=== PATIENT | male | born 1970 | race Caucasian/White ===

== ENCOUNTER 2020-09-02 11:23 | Emergency (ER) | payer BC ==
[2020-09-02 11:29] VITALS: RESP 20; TEMP 98.4
[2020-09-02] MEDS ORDERED: ORPHENADRINE 30 MG/ML 2 ML VIAL IM STA (11:57)
[2020-09-02] MEDS ORDERED: ACET/COD 300 MG/30 MG STARTER PACK 6 TAB BTL PO STA (11:57)
[2020-09-02] MEDS ORDERED: KETOROLAC 15 MG/ML 1 ML VIAL IM STA (11:57)
--- NOTE | 2020-09-02 12:29 | ED ---
General Adult HPI - General Chief complaint: Neck Pain/Injury Stated complaint: Shoulder Pain Source: patient Mode of arrival: ambulatory Limitations: no limitations - History of Present Illness Initial comments: 50-year-old male with a past medical history of hypertension, tonsillectomy presents to the emergency room for a chief complaint of left-sided neck pain. Patient states that he has had neck pain that radiates to his left shoulder since yesterday. 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 Throat the day this got worse. At night he states it spasmed up more. States it hurts to move to the right. States it hurts to lift his arms especially to put a shirt on. Patient did take Tylenol but it did not seem to help. He denies any weakness in the left arm. Denies any radiating pain or loss of sensation down the left arm. Patient has no other complaints at this time including shortness of breath, chest pain, abdominal pain, nausea or vomiting, headache, or visual changes. - Related Data Home Medications Medication Instructions Recorded Confirmed [id number] 4 tab PO ONCE PRN 09/02/20 09/02/20 [Excedrin] Losartan Potassium 100 mg PO DAILY 09/02/20 09/02/20 amLODIPine [Norvasc] 10 mg PO DAILY 09/02/20 09/02/20 Previous Rx's Medication Instructions Recorded Cyclobenzaprine [Flexeril] 5 mg PO TID #12 tablet 09/02/20 Allergies Allergy/AdvReac Type Severity Reaction Status Date / Time No Known Allergies Allergy Verified 09/02/20 12:09 Review of Systems ROS Statement: Those systems with pertinent positive or pertinent negative responses have been documented in the HPI. ROS Other: All systems not noted in ROS Statement are negative. Past Medical History Past Medical History: Hypertension History of Any Multi-Drug Resistant Organisms: None Reported Past Surgical History: Adenoidectomy, Tonsillectomy Past Psychological History: No Psychological Hx Reported Smoking Status: Never smoker Past Alcohol Use History: Occasional Past Drug Use History: None Reported General Exam Limitations: no limitations General appearance: alert Head exam: Present: atraumatic Eye exam: Present: normal appearance, PERRL, EOMI. Absent: scleral icterus, conjunctival injection ENT exam: Present: normal exam, mucous membranes moist Neck exam: Present: tenderness (Tenderness to the left paraspinal muscles into the upper trapezius of the left shoulder). Absent: meningismus, full ROM (Patient able to rotate neck about 45 to the right, full range motion of the left) Respiratory exam: Present: normal lung sounds bilaterally. Absent: respiratory distress, wheezes Cardiovascular Exam: Present: regular rate, normal rhythm, normal heart sounds GI/Abdominal exam: Present: soft, normal bowel sounds. Absent: distended, tenderness, guarding, rebound, rigid Extremities exam: Present: normal capillary refill (Capillary refill less than 2 seconds, radial pulse 2+), other (Sensation intact left upper extremity). Absent: full ROM (Patient able to flex arm to 90. Flexing past this point causes pain. No weakness.) Back exam: Absent: CVA tenderness (R), CVA tenderness (L) Neurological exam: Present: alert Course Vital Signs 09/02/20 11:26 Temperature 98.4 F Pulse Rate 73 Respiratory 20 Rate Blood Pressure 157/88 O2 Sat by Pulse 98 Oximetry Medical Decision Making - Medical Decision Making Vitals are stable. 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 Pain is mechanical in nature. Radial pulse 2+ in the left upper extremity. Sensation intact. Pains worsens with movement of the neck as well as flexion of the left shoulder. Patient was given Toradol and Norflex and did have significant improvement in symptoms. Patient likely has a torticollis or acute cervical strain. Recommend that he follow up with primary care and orthopedics as needed. He will return here to the emergency room for any worsening symptoms. We will start patient on conservative management. Disposition Clinical Impression: Strain of neck muscle, Acquired torticollis Disposition: HOME SELF-CARE Condition: Good Instructions (If sedation given, give patient instructions): Cervical Strain (ED) Additional Instructions: Please take Motrin and Tylenol for pain. You can alternate these as needed. Take Tylenol 3 at night if needed for severe pain. You may also try the muscle relaxer but do not take this while taking the Tylenol 3. Do not drive or operate machinery while taking muscle relaxer or the Tylenol 3. Return to the emergency room for any worsening symptoms. If symptoms are persistent follow-up with orthopedics or primary care. Prescriptions: Cyclobenzaprine [Flexeril] 5 mg PO TID #12 tablet Is patient prescribed a controlled substance at d/c from ED?: No Referrals: Nonstaff,Physician [Primary Care Provider] - 1-2 days Bandar Reeves DO [Doctor of Osteopathic Medicine] - 1-2 days Time of Disposition: 13:01
[2020-09-02 13:24] VITALS: BP 151/78; PULSE 70
== END 2020-09-02 13:24 | disposition home or self-care (01) ==
LOC: EC 11:23
DX: S16.1XXA Strain of muscle, fascia and tendon at neck level, initial encounter (principal); I10 Essential (primary) hypertension; Z79.899 Other long term (current) drug therapy; X58.XXXA Exposure to other specified factors, initial encounter
CPT/HCPCS: 99283; 96372; J2360; J1885

== ENCOUNTER 2020-09-03 10:50 | Emergency (ER) | payer BC ==
[2020-09-03 11:14] VITALS: RESP 18; TEMP 98.9
[2020-09-03] MEDS ORDERED: MORPHINE SULFATE 4 MG/ML SYRINGE IM STA (11:24)
--- NOTE | 2020-09-03 11:58 | XR ---
EXAMINATION TYPE: XR chest 2V DATE OF EXAM: 09/03/2020 COMPARISON: NONE HISTORY: Pain in shoulder and chest TECHNIQUE: Frontal and lateral views of the chest are obtained. FINDINGS: The lungs are clear of consolidative, interstitial or masslike opacity. There is no pleural effusion, pleural thickening or pneumothorax. The heart, pulmonary vasculature, mediastinum and hilum appear normal. The osseous structures are intact. IMPRESSION: No significant abnormality seen.
--- NOTE | 2020-09-03 12:00 | XR ---
Left shoulder. HISTORY: Pain. COMPARISON: None. TECHNIQUE: 3 views left shoulder were obtained. FINDINGS: There is no fracture, dislocation, intraosseous or intra-articular abnormality. There is no radiopaque foreign body or abnormal soft tissue calcification. IMPRESSION: No significant abnormality seen.
--- NOTE | 2020-09-03 12:01 | XR ---
Left clavicle. HISTORY: Pain following trauma. COMPARISON: None. TECHNIQUE: 2 views of the left clavicle were obtained. FINDINGS: There is no fracture, dislocation, intraosseous or intra-articular abnormality. The AC joint is stanislav l. IMPRESSION: No significant abnormality seen.
--- NOTE | 2020-09-03 13:04 | ED ---
General Adult HPI - General Chief complaint: Extremity Injury, Upper Stated complaint: Revisit - Shoulder Pain Source: patient Mode of arrival: ambulatory Limitations: no limitations - History of Present Illness Initial comments: 50-year-old male presents to the emergency room for a chief complaint of left clavicle pain and left posterior neck pain. Patient states 2 days ago he was working under a car. States he was trying to remove a radiator and was pulling on a lever. He could not get it to budge so pulled very hard and felt a pain and pop in his clavicle and pain in shoulder. Patient states this has persisted. Patient states it has actually worsened throughout the night. States it is very painful to put his shirt on because of the motions of his arm. Moving his neck exacerbates his pain as well. Pressing on the area on the clavicle makes the pain worse as well. Patient denies any pain rating on the arm. Denies any weakness in the left arm.Patient has no other complaints at this time including shortness of breath, chest pain, abdominal pain, nausea or vomiting, headache, or visual changes. - Related Data Home Medications Medication Instructions Recorded Confirmed [id number] 4 tab PO ONCE PRN 09/02/20 09/02/20 [Excedrin] Losartan Potassium 100 mg PO DAILY 09/02/20 09/02/20 amLODIPine [Norvasc] 10 mg PO DAILY 09/02/20 09/02/20 Previous Rx's Medication Instructions Recorded Cyclobenzaprine [Flexeril] 5 mg PO TID #12 tablet 09/02/20 HYDROcodone/APAP 5-325MG [[place] 1 tab PO Q6HR PRN #10 tab 09/03/20 5-325] Ibuprofen [Motrin] 600 mg PO Q8HR PRN #20 tab 09/03/20 diazePAM [Valium] 5 mg PO TID PRN 3 Days #9 tab 09/03/20 Allergies Allergy/AdvReac Type Severity Reaction Status Date / Time No Known Allergies Allergy Verified 09/03/20 11:14 Review of Systems ROS Statement: Those systems with pertinent positive or pertinent negative responses have been documented in the HPI. ROS Other: All systems not noted in ROS Statement are negative. Past Medical History Past Medical History: Hypertension History of Any Multi-Drug Resistant Organisms: None Reported Past Surgical History: Adenoidectomy, Tonsillectomy Past Psychological History: No Psychological Hx Reported Smoking Status: Never smoker Past Alcohol Use History: Occasional Past Drug Use History: None Reported General Exam - General Exam Comments Initial Comments: Left upper extremity: Strength 5 out of 5. Patient able to flex left arm to 90. Heart Nurse strength 5 out of 5. Sensation intact. Radial pulse 2+, capillary refill less than 2 seconds. Skin exam unremarkable. Patient also has mild edema noted to the medial aspect of the left clavicle around the sternoclavicular joint. Tenderness to the sternal clavicular joint. minimal ecchymosis to this area as well. No edema extending into the neck or chest Limitations: no limitations General appearance: alert, in no apparent distress Head exam: Present: atraumatic, normocephalic, normal inspection Eye exam: Present: normal appearance, PERRL, EOMI. Absent: scleral icterus, conjunctival injection, periorbital swelling ENT exam: Present: normal exam, mucous membranes moist Neck exam: Present: tenderness (Left lateral posterior neck tenderness). Absent: meningismus, full ROM (Patient has about 60 rotation bilaterally), lymphadenopathy Respiratory exam: Present: normal lung sounds bilaterally. Absent: respiratory distress, wheezes, rales, rhonchi, stridor Cardiovascular Exam: Present: regular rate, normal rhythm, normal heart sounds. Absent: systolic murmur, diastolic murmur, rubs, gallop, clicks GI/Abdominal exam: Present: soft, normal bowel sounds. Absent: distended, tenderness, guarding, rebound, rigid Course Vital Signs 09/03/20 09/03/20 11:11 13:11 Temperature 98.9 F 98.9 F Pulse Rate 74 86 Respiratory 18 18 Rate Blood Pressure 140/90 143/99 O2 Sat by Pulse 100 100 Oximetry Medical Decision Making - Medical Decision Making Patient presents with clavicular and neck pain after an injury 2 days ago. Pain is reproducible on exam to palpation and ROM. Patient has edema, ecchymosis and tenderness over the sternoclavicular joint. This does not extend into the neck or chest. He also has tenderness left posterior cervical muscles extending into the shoulder with pain with flexion of the left shoulder and rotation of the neck consistent with cervical muscle strain. Neurovascular status intact in the left upper extremity.Chest, shoulder, and clavicle x-ray all negative. Dr. Helmreich also evaluated patient. At this time symptoms are consistent with a subluxation or ligamentous strain of the clavicle at the sternoclavicular joint. At this time we will start patient on prescription strength Motrin for pain with [place] for breakthrough pain. We will also give Valium for spasm of the cervical muscles. Patientthese out. He will not take them together. He will not drive or operate machinery while taking Valium or [place]. He will follow-up with his doctor on Saturday. I did also give him orthopedic follow-up. He was given a sling for comfort but did discuss range of motion of the shoulder to prevent frozen shoulder. He will return for any worsening symptoms. Disposition Clinical Impression: Strain of neck muscle, Pain of left clavicle Disposition: HOME SELF-CARE Condition: Good Instructions (If sedation given, give patient instructions): Cervical Strain (ED) Additional Instructions: Please take Motrin for pain. Make sure to eat something while taking Motrin. Take a [place] if pain is severe. Take Valium for muscle spasm. Do not drive or operate machinery while taking Valium or [place]. Follow-up with your doctor in one to 2 days. Follow-up with orthopedics as well. If you have worsening symptoms return to the emergency room. Prescriptions: Ibuprofen [Motrin] 600 mg PO Q8HR PRN #20 tab PRN Reason: Pain HYDROcodone/APAP 5-325MG [[place] 5-325] 1 tab PO Q6HR PRN #10 tab PRN Reason: Pain diazePAM [Valium] 5 mg PO TID PRN 3 Days #9 tab PRN Reason: Muscle Spasm Is patient prescribed a controlled substance at d/c from ED?: No Referrals: Nonstaff,Physician [Primary Care Provider] - 1-2 days Bandar Reeves DO [Doctor of Osteopathic Medicine] - 1-2 days Time of Disposition: 13:00
[2020-09-03 13:12] VITALS: BP 143/99; PULSE 86
== END 2020-09-03 13:22 | disposition home or self-care (01) ==
LOC: EC 10:50
DX: S16.1XXA Strain of muscle, fascia and tendon at neck level, initial encounter (principal); I10 Essential (primary) hypertension; Z79.1 Long term (current) use of non-steroidal anti-inflammatories (NSAID); X58.XXXA Exposure to other specified factors, initial encounter
CPT/HCPCS: 73030; 73000; 71046; 99283; 96372; J2270